=== PATIENT | female | born 1930 | race Asian ===

== ENCOUNTER 2018-02-18 12:07 | Outpatient (CLI) | payer OTHER | END 2018-02-18 12:12 | disposition short-term general hospital (02) | LOC: AMB 12:07 | DX: R58 Hemorrhage, not elsewhere classified (principal) | CPT/HCPCS: A0425; A0429 ==

== ENCOUNTER 2018-02-18 12:12 | Emergency (ER) | payer OTHER ==
[~2018-02-18] VITALS: Ht 172.7 cm; Wt 61.2 kg
[2018-02-18 12:12] VITALS: TEMP 97.3
[2018-02-18 13:45] LABS: PLATELET COUNT 179 K/uL (152-353)
[2018-02-18 13:55] LABS: POTASSIUM 3.9 mmol/L (3.6-5.2)
[2018-02-18 18:45] VITALS: BP 130/68
== END 2018-02-18 18:45 | disposition home or self-care (01) ==
LOC: ED 12:21
DX: C76.52 Malignant neoplasm of left lower limb (principal); C78.00 Secondary malignant neoplasm of unspecified lung; C78.7 Secondary malignant neoplasm of liver and intrahepatic bile duct; C79.89 Secondary malignant neoplasm of other specified sites
CPT/HCPCS: 80053; 81000; 85027; 99283